=== PATIENT | female | born 2000 | race Two or more races ===

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

== ENCOUNTER 2019-03-10 13:59 | Emergency (ER) | payer OTHER ==
[2019-03-10 14:10] VITALS: TEMP 98.3; BMI 25.4
[2019-03-10] MEDS ORDERED: SODIUM CHLORIDE 1,000 ML IV STA (15:17)
--- NOTE | 2019-03-10 15:19 | PDOC ---
History of Present Illness - General Chief Complaint: Nausea/Vomiting Stated Complaint: 6 WEEKS PRGT/WEAK History Source: Patient Exam Limitations: No Limitations - History of Present Illness Initial Comments: 03/10/19 15:14 Ness Jose is a 18F @6 weeks presenting with a week of nausea and vomiting. Patient says she has been nauseated and vomiting anything she has tried to eat for the last week. Vomitus is NBNB, cannot tolerate solids, soups, liquids. Cannot take vitamins. Patient and patient's mother both have known history of hyperemesis gravidarium, this happened with her first child as well. Denies F/C, C/D, vaginal bleeding/discharge, GIBSON. Being treated for a UTI at this time, known which medication, has not been taking because of N/V. Has some upper abdominal pain that developed after all the vomiting. 6 weeks , LMP 01/15, say Marlen yesterday, had US and all normal per patient report. NKDA No medications she takes every day other than PNV and unknown Abx for UTI No other PMH Past History - Past Medical History Allergies/Adverse Reactions: Allergies Allergy/AdvReac Type Severity Reaction Status Date / Time No Known Allergies Allergy Verified 03/10/19 14:07 Home Medications: Ambulatory Orders No115/Iron/Folic Acid [ 19 Chewable Tablet] 1 each PO DAILY 04/17 Doxylamine Succinate/Vit B6 [Diclegis Dr 10-10 mg Tablet] 1 each PO DAILY #14 tablet.dr 03/10/19 Nitrofurantoin Monohyd/M-Cryst [Macrobid -] 100 mg PO BID 7 Days #14 capsule 03/19 Ondansetron [Zofran *Odt*] 4 mg SL BID #14 od.tablet 03/10/19 Anemia: No Asthma: No Cardiac Disorders: No COPD: No Dementia: No Dialysis: No Disorders: No Hypercholesterolemia: No Liver Disease: No Psychiatric Problems: No Thyroid Disease: No - Surgical History Abdominal Surgery: No Gastric Stapling: No Lung Surgery: No - Reproductive History Is Patient Now?: Yes (6 WEEKS) (#): 2 Para: 1 Cervical CA: No Dysfunctional Uterine Bleeding: No Ectopic : No Endometrial CA: No Polycystic Ovaries: No Therapeutic (s) & number: No Tubal Ligation: No Spontaneous : 0 - Immunization History Immunization Up to Date: Yes - Psycho Social/Smoking Cessation Hx Smoking Status: No Smoking History: Never smoked Have you smoked in the past 12 months: No Number of Cigarettes Smoked Daily: 0 Information on smoking cessation initiated: No Hx Alcohol Use: No Drug/Substance Use Hx: No Substance Use Type: None Review of Systems - Review of Systems Constitutional: Yes: Loss of Appetite. No: Chills, Fever, Weakness HEENTM: No: Symptoms Reported Respiratory: No: Cough, Shortness of Breath, Wheezing Cardiac (ROS): No: Chest Pain, Edema, Irregular Heart Rate, Lightheadedness, Palpitations, Syncope ABD/GI: Yes: Nausea, Poor Appetite, Poor Fluid Intake, Vomiting. No: Constipated, Diarrhea : Yes: Burning, Other (known 6 weeks ). No: Discharge, Flank Pain, Hematuria, Pain Musculoskeletal: No: Symptoms Reported Integumentary: No: Symptoms Reported Neurological: No: Symptoms reported Endocrine: No: Symptoms Reported Hematologic/Lymphatic: No: Symptoms Reported All Other Systems: Reviewed and Negative *Physical Exam - Vital Signs Last Vital Signs Temp Pulse Resp BP Pulse Ox 98.3 F 100 H 17 107/55 L 98 03/10/19 14:07 03/10/19 14:07 03/10/19 14:07 03/10/19 14:07 03/10/19 14:07 - Physical Exam General Appearance: Yes: Nourished, Appropriately Dressed, Mild Distress HEENT: positive: EOMI, MARYAM, Normal Voice, Symmetrical. negative: Scleral Icterus (R), Scleral Icterus (L), Pharyngeal Erythema, Tonsillar Exudate, Tonsillar Erythema Neck: positive: Trachea midline, Supple. negative: Lymphadenopathy (R), Lymphadenopathy (L) Respiratory/Chest: positive: Lungs Clear, Normal Breath Sounds. negative: Respiratory Distress, Accessory Muscle Use, Crackles, Rales, Rhonchi Cardiovascular: positive: Regular Rhythm, Regular Rate. negative: Edema Vascular Pulses: Dorsalis-Pedis (R): 2+, Doralis-Pedis (L): 2+ Gastrointestinal/Abdominal: positive: Normal Bowel Sounds, Tender (epigastric), Soft, Other (inspection normal, no rash or injury noted). negative: Organomegaly, Guarding, Rebound, Hernia, Mass Musculoskeletal: positive: Normal Inspection. negative: CVA Tenderness Extremity: positive: Normal Capillary Refill, Normal Inspection, Normal Range of Motion. negative: Tender Integumentary: positive: Normal Color, Dry, Warm Neurologic: positive: Fully Oriented, Alert, Normal Mood/Affect, Normal Response ED Treatment Course - LABORATORY CBC & Chemistry Diagram: 03/10/19 15:30 03/10/19 15:30 Medical Decision Making - Medical Decision Making 03/10/19 15:14 Ness Jose is a 18F @6 weeks presenting with a week of nausea and vomiting. 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 Ectopic risk low given had f/u with OBGYN yesterday and had US, also does not have acute abdomen or vaginal bleeding. Will evaluate via: CMP CBC UA/UC/Upreg Giving 1L NS and 4mg Zofran for nausea Plan to PO challenge in 1 hour and dispo home with Olman 03/10/19 17:03 Patient still nauseated, giving 10mg reglan and 500mL IV NS UA shows UTI, patient is on unknown Abx but says she has not taken 2/2 nausea. Patient told that she must take antibiotics to clear the infection or her will be at risk. Prescribing bid Macrobid for 5 days to be sure. 03/10/19 18:08 Patient feels better, stable to go home, tolerating PO. Discussed medication Diclegis and Zofran sent to her pharmacy, discussed return precautions if vaginal bleeding occurs. Stable to be discharged home. Discharge - Discharge Information Problems reviewed: Yes Clinical Impression/Diagnosis: Nausea and vomiting during Qualifiers: Weeks of gestation: less than 8 weeks Qualified Code(s): Z3A.01 - Less than 8 weeks gestation of UTI (urinary tract infection) Qualifiers: Urinary tract infection type: acute cystitis Hematuria presence: without hematuria Qualified Code(s): N30.00 - Acute cystitis without hematuria Condition: Stable - Additional Discharge Information Prescriptions: Doxylamine Succinate/Vit B6 [Olman Sandra 10-10 mg Tablet] 1 each PO DAILY #14 tablet. Nitrofurantoin Monohyd/M-Cryst [Macrobid -] 100 mg PO BID 7 Days #14 capsule Ondansetron [Zofran *Odt*] 4 mg SL BID #14 od.tablet - Follow up/Referral Referrals: Jessie Berger MD [Primary Care Provider] - - Patient Discharge Instructions Patient Printed Discharge Instructions: Nausea of (Alternative Therapy), DI for Nausea -- Adult Additional Instructions: Today you were evaluated for nausea and vomiting. We took blood labs that show that your electrolyte levels are normal and that you are not having pancreatitis. No evidence of an infection or anemia. Your urine shows that you still have a UTI, and need to take your medication for it as prescribed. We gave you some IV fluids and a medication called Zofran for nausea. I have prescribed you Zofran and a medicine called Diclegis for nausea. I am prescribing you Macrobid to treat your UTI; if you do not treat your UTI, there is an increased risk of losing your , so this is critical that you take the antibiotic. Please follow-up with your OBGYN in the next week for further care. If you experience worsening nausea, become completely unable to eat, have dizziness, vomit blood, new belly pain, vaginal bleeding, or any other new or concerning symptoms, please return to the closest emergency room. - Post Discharge Activity
[2019-03-10 15:44] LABS: BASO % 0.5 % (0-2.0); EOS % 0.1 % (0-4.5); HEMATOCRIT 34.7 % (32.4-45.2); HEMOGLOBIN 11.4 GM/dL (10.7-15.3); LYMPH % 26.1 % (8-40); MCHC 32.7 g/dl (32.0-36.0); MEAN CELL VOLUME 76.5 fl (80-96); MEAN PLT VOLUME 7.7 fl (7.5-11.1); MONO % 6.3 % (3.8-10.2); PLATELET COUNT 229 K/MM3 (134-434); RBC 4.54 M/mm3 (3.60-5.2); RDW 16.1 % (11.6-15.6); WHITE BLOOD COUNT 7.4 K/mm3 (4.0-10.0)
[2019-03-10] MEDS ORDERED: ONDANSETRON 4 MG/2 ML VIAL IVPUSH ONE (15:54)
[2019-03-10] MEDS ORDERED: ONDANSETRON 4 MG/2 ML VIAL ONE (15:57)
[2019-03-10 15:58] LABS: EPI CELLS 4.1 /HPF (0-5/HPF); HYALINE CASTS 61 /lpf (0-8); PH,URINE 6.5 (5.0-8.0); URINE APPEARANCE CLOUDY; URINE BACTERIA 51.1 /hpf (NEGATIVE); URINE BILIRUBIN NEGATIVE (NEGATIVE); URINE COLOR DK YELLOW; URINE GLUCOSE (UA) NEGATIVE (NEGATIVE); URINE KETONE 3+ (NEGATIVE); URINE LEUK ESTERASE 2+ (NEGATIVE); URINE NITRITE NEGATIVE (NEGATIVE); URINE PROTEIN 1+ (NEGATIVE); URINE RBC 1 /hpf (0-4); URINE UROBILINOGEN 0.2 mg/dL (0.2-1.0); URINE WBC 34 /hpf (0-5)
[2019-03-10 16:15] LABS: BILIRUBIN,TOTAL 0.4 mg/dL (0.2-1); BLOOD UREA NITROGEN 7.3 mg/dL (7-18); CALCIUM 9.2 mg/dL (8.5-10.1); CREATININE 0.5 mg/dL (0.55-1.3); POTASSIUM 3.9 mmol/L (3.5-5.1)
--- NOTE | 2019-03-10 16:17 | PDOC ---
Attending Attestation - Resident Resident Name: Cuauhtemoc Carranza - ED Attending Attestation I have performed the following: I have examined & evaluated the patient, The case was reviewed & discussed with the resident, I agree w/resident's findings & plan, Exceptions are as noted - HPI HPI: 03/10/19 16:15 20 weeks G2P 1 years old 6 weeks G2, P1 with nausea vomiting x1 week no abdominal pain no bleeding - Physicial Exam PE: 03/10/19 16:15 Vitals: Triage Vital signs reviewed General Appearance: No acute distress, well nourished well developed, Head: Atraumatic, Cardiac: Regular rate and rhythym, no murmurs, no rubs, no gallops, Lungs: Clear to auscultation bilateral, good air movement bilaterally, Abdomen: Soft, non distended, normal bowel sounds, non tender to palpation Extremities: Full range of motion to all extremities, no cyanosis, clubbing, or edema Skin: Warm and dry, no rashes or lesions, no rash, no petechiae Psych: Normal mood, normal affect - Medical Decision Making 03/10/19 16:16 Well-appearing no apparent distress with hyperemesis. Now tolerating fluids status post antiemetics Also with UTI will discharge with prescription for Macrobid likely just and Zofran she will follow-up with her [facility] this week she will return to ED for any severe worsening symptoms or for any concerns.
[2019-03-10] MEDS ORDERED: SODIUM CHLORIDE 500 ML IV STA (16:52)
[2019-03-10] MEDS ORDERED: METOCLOPRAMIDE HCL INJECTION 10 MG/2 ML VIAL IVPB ONE (16:52)
[2019-03-10] MEDS ORDERED: METOCLOPRAMIDE HCL INJECTION 10 MG/2 ML VIAL ONE (17:22)
[2019-03-10 18:13] VITALS: BP 124/62; PULSE 80
== END 2019-03-10 18:14 | disposition home or self-care (01) ==
LOC: JER 13:59
PROC: 3E0337Z Introduction of Electrolytic and Water Balance Substance into Peripheral Vein, Percutaneous Approach (ICD-10-PCS; principal; 2019-03-10)
PROC: 3E033GC Introduction of Other Therapeutic Substance into Peripheral Vein, Percutaneous Approach (ICD-10-PCS; 2019-03-10)
PROC: 3E033GC Introduction of Other Therapeutic Substance into Peripheral Vein, Percutaneous Approach (ICD-10-PCS; 2019-03-10)
DX: O26.891 Other specified pregnancy related conditions, first trimester (principal); O21.0 Mild hyperemesis gravidarum; O23.11 Infections of bladder in pregnancy, first trimester; Z3A.01 Less than 8 weeks gestation of pregnancy
CPT/HCPCS: 36415; 80053; 81003; 83690; 84703; 85025; 87086; 99282-25; J7030